=== PATIENT | female | born 1945 | race Hispanic/Latino ===

== ENCOUNTER 2017-03-20 08:00 | Day surgery (SDC) | payer MEDICARE, OTHER ==
[2017-03-20] MEDS ORDERED: Propofol 10 mg/ml Inj (20 ML) ONE ×2 (10:05→11:15)
[2017-03-20] MEDS ORDERED: Midazolam 2 MG/2 ML VIAL ONE (10:05)
[2017-03-20] MEDS ORDERED: Bupivacaine HCl 0.5% PF (10 ml) Inj ONE ×2 (10:08→10:15)
[2017-03-20] MEDS ORDERED: Lidocaine 1% Inj (20ml) ONE (10:08)
[2017-03-20] MEDS ORDERED: Clindamycin 300 mg/2 ml Inj ONE (10:08)
[2017-03-20] MEDS ORDERED: Lactated Ringer's 1,000 ML IV ONE (10:10)
[2017-03-20] MEDS ORDERED: Lidocaine 2% Inj (20ml) ONE ×2 (10:15→11:15)
[2017-03-20] MEDS ORDERED: Oxycodone/Acetaminophen 5/325 mg Tab PO PRN ×2 (11:47)
--- NOTE | 2017-03-20 14:16 | RAD ---
PROCEDURE: Right Foot Radiographs. HISTORY: s/p right foot surgery COMPARISON: 03/17/2017 FINDINGS: BONES: The patient is status post osteotomy distal aspect 2nd and 3rd proximal phalanges. Evaluation of the 4th and 5th digits is somewhat limited due to flexion deformity of the 4th and 5th digit. Questionable erosion at distal aspect 5th proximal phalanx. Pes planus deformity. JOINTS: Talonavicular osteoarthritis. SOFT TISSUES: Soft tissue swelling over dorsum of foot. OTHER FINDINGS: None. IMPRESSION: Osteotomy 2nd and 3rd proximal phalanges. Possible erosion distal aspect 5th proximal phalanx. Limited evaluation.
[2017-03-20 15:21] VITALS: O2SAT 100
[2017-03-20 17:19] VITALS: PULSE 63
[2017-03-20 17:22] VITALS: BP 119/52; RESP 20; TEMP 97.8
--- NOTE | 2017-03-20 18:52 | OP ---
PROCEDURE DATE: 03/20/2017 PRIMARY SURGEON: Wyatt Hardwick DPM. TMH TEACHER: Zach Linn DPM, PGY-1. ANESTHESIOLOGIST: Dr. Lozano. ANESTHESIA: IV sedation with local block. PREOPERATIVE DIAGNOSES: Right foot 2nd and 3rd digit hammertoe deformity and right ankle osteoarthritis and right heel plantar fascia pain. POSTOPERATIVE DIAGNOSES: Right foot 2nd and 3rd digit hammertoe deformity and right ankle osteoarthritis and right heel plantar fascia pain. PROCEDURE PERFORMED: 1. Right 2nd and 3rd digit hammertoe repair. 2. Right ankle joint amniotic product infiltration. 3. Amniotic injection into plantar fascia. INDICATIONS: The patient is a 71-year-old female with the above stated diagnosis. The patient has exhausted all conservative treatment options at this time and now requests surgical intervention. The patient signed a consent after careful explanation of risks, benefits, complications and alternatives for surgical procedure. No guarantees were given nor implied. PREPARATION: The patient was brought into the operating room and placed on the operating room table in a supine position. IV sedation was commenced and after confirmation of IV sedation, the patient received a total of 20 mL of a 1:1 mixture of 0.5% Marcaine plain to 1% lidocaine plain in a local block type fashion to the right foot. Anesthesia was confirmed and at this time, the procedure began with the foot being prepped and draped in the usual sterile manner. Tourniquet was inflated to 250 mmHg and the procedure began. DESCRIPTION OF PROCEDURE: Attending was present during the entire case. PROCEDURE 1) Attention was then directed to the dorsal aspect of the right foot. A 2.5 mm longitudinal incision was made overlying the prominent 2nd digit proximal interphalangeal joint. Incision was extended down through dermal and subcutaneous tissue layers using a #15 blade with care being taken to avoid all neurovascular structures and all bleeders bovied as needed. Once fascia tissue layer reached, a transverse incision was made overlying the proximal interphalangeal joint capsule where the extensor digitorum tendon was excised free of its christina and ligamentous attachments. At this time the head of the second digit proximal phalanx was freed from its capsular and fibrous soft tissue attachments. Once completely free of these attachments, a transverse osteotomy was performed of the proximal phalanx head using a sagittal saw. The head of the proximal phalanx was then removed from the operative field. At this time, surgical correction was assessed and hammertoe reduction was noted to be appropriate. Incision site was then flushed with copious amounts of normal sterile saline. Extensor digitorum tendons were then reapproximated using 3-0 Vicryl. Skin was reapproximated using 4-0 nylon. PROCEDURE 2) Attention was then directed to the 3rd digit where the above stated procedure was also performed in all detailed steps as noted. PROCEDURE 3) Attention was then directed to the medial aspect of the right foot point. Three trigger points that had been previous reassess preoperatively were noted. Using a total of 8 mL of a 4:1 mixture of 0.5% Marcaine plain to Rheo amniotic graft was injected into ankle joint. Remaining 2 mL of the above stated 4:1 mixture was then injected plantarly into the medial calcaneal tubercle and into plantar fascia without incident. Right foot surgical sites were then dressed Betadine soaked 4 x 4 gauze, sterile 4 x 4, Kerlix and Coban. POSTOPERATIVE CONDITION: The patient tolerated the anesthesia and procedure well and was escorted to the PACU with vital signs stable and neurovascular status intact to the right foot. The patient will follow up with Dr. Hardwick on an outpatient basis. Zach Linn DPM Wyatt Hardwick DPM cc: [id number] TT: 03/20/2017 18:52:15 jn [email or web address]
== END 2017-03-20 13:30 | disposition home or self-care (01) ==
LOC: C.SDS 08:00
PROVIDERS: ATTEND Podiatrist
DX: M20.41 Other hammer toe(s) (acquired), right foot (principal); M19.071 Primary osteoarthritis, right ankle and foot; M79.671 Pain in right foot
CPT/HCPCS: 20605; 28285; 73620; 88304; 96372; J2250; J2704; J3010; J7120